=== PATIENT | female | born 1990 | race Two or more races ===

== ENCOUNTER → 2024-12-22 | Outpatient (CLI) | payer OTHER, SELFPAY ==
--- NOTE | 2024-12-22 15:34 | XR_ITS ---
Examination: Foot, right, 3 views Technique: AP, oblique, lateral views foot, 3 views Date and time of exam: December 22, 2024 1535 hours INDICATIONS: Redness swelling and pain involving the right first digit beginning 3 months ago FINDINGS: Soft tissue swelling about the first digit No fracture. No foreign body. No cortical bone destruction IMPRESSION: No fracture or dislocation No cortical bone destruction
== END | disposition home or self-care (01) ==
PROVIDERS: PCP Nurse Practitioner Family; Referring Provider Nurse Practitioner Family; Visit Provider Nurse Practitioner Family
DX: M79.674 Pain in right toe(s) (principal); M79.89 Other specified soft tissue disorders; T14.8XXA Other injury of unspecified body region, initial encounter
CPT/HCPCS: 73630